=== PATIENT | female | born 1995 | race American Indian/Alaskan Native ===

== ENCOUNTER 2019-06-21 12:27 | Outpatient (CLI) | payer MEDICAID ==
[2019-06-21 13:53] LABS: Bilirubin,Urine NEG (Negative); Blood,Urine NEG (Negative); Color,Urine Straw (Yellow); Protein,Urine <15 mg/dL mg/dL (Negative); Urobilinogen,Urine < 2.0 mg/dL (<2.0)
[2019-06-21] MEDS ORDERED: LACTATED RINGERS 500 ML IV ONE (14:00)
[2019-06-21 18:50] VITALS: BP 126/58
== END 2019-06-21 14:58 | disposition home or self-care (01) ==
LOC: TRG 12:27
PROVIDERS: ATTEND Obstetrics & Gynecology
DX: O26.893 Other specified pregnancy related conditions, third trimester (principal); O47.03 False labor before 37 completed weeks of gestation, third trimester; M79.605 Pain in left leg; Z3A.28 28 weeks gestation of pregnancy
CPT/HCPCS: 81001